=== PATIENT | male | born 1995 | race Caucasian/White ===

== ENCOUNTER 2021-01-28 20:40 | Emergency (ER) | payer BC, SELFPAY ==
--- NOTE | 2021-01-28 20:45 | XRR_ITS ---
PROCEDURE INFORMATION: Exam: XR Chest Exam date and time: 01/28/2021 8:45 PM Age: 25 years old Clinical indication: Pain; Shortness of breath and other: Anxious; Chest pressure and other: Radiating to left arm; Patient HX: Cp today radiating to left arm. PT been anxious for 2 days TECHNIQUE: Imaging protocol: XR of the chest. Views: 1 view. Total images: 1 COMPARISON: No relevant prior studies available. FINDINGS: Lungs: Hyperinflation and query a history of reactive airway disease/asthma/chronic bronchitis. Lungs Pleural spaces: Unremarkable. No pleural effusion. No pneumothorax. Heart/Mediastinum: Unremarkable. No cardiomegaly. Bones/joints: Unremarkable. XR/XR chest 1V portable [id number] IMPRESSION: Hyperinflation.
[2021-01-28 21:22] VITALS: BP 115/83; PULSE 73; RESP 14; TEMP 36.7; O2SAT 98
--- NOTE | 2021-01-28 21:38 | ED_ITS ---
HPI - Chest Pain General: Chief Complaint: Chest Pain Stated Complaint: chest pain Time Seen by Provider: 01/28/21 21:32 Source: patient Mode of arrival: ambulatory Limitations: no limitations History of Present Illness: HPI narrative: 25-year-old male states has been having chest pain along with some dyspnea over last 2 days. He states that he was at work and bent over and had a sharp pain in his chest. He states that pain is since improved and is now 1 out of 10. Denies any injuries. Denies any recent long trips. Denies any history of heart issues or any health issues. Associated symptoms: Reports dyspnea; Deny abdominal pain, fever(s), nausea or vomiting Review of Systems Const: Denies: fever(s), chills, body aches or change in appetite Eyes: Denies: blurry vision or eye discomfort ENMT: Denies: throat pain or dental pain Card: Reports: chest pain Resp: Reports: dyspnea GI: Denies: abdominal pain, nausea, vomiting or diarrhea : Denies: dysuria Musc: Denies: neck pain or back pain Skin/Breast: Denies: rash Neuro: Denies: headache(s) Psych: Denies: depression Sadiq/Lymph: Denies: easy bruising All/Imm: Denies: urticaria Physical Exam Const: COMMON NORMALS: no acute distress, patient oriented x3 and healthy appearing HENMT: COMMON NORMALS: normocephalic and atraumatic HEAD & SCALP: normocephalic and atraumatic Eye: COMMON NORMALS: Equal, round and reactive pupils present and EOMs intact bilaterally PUPIL: Yes Equal, round and reactive pupils present Neck/C-Spine: COMMON NORMALS: full ROM and supple Chest: COMMONS NORMALS: normal inspection of the chest and normal palpation of entire chest wall Resp: COMMON NORMALS: normal respiratory effort, No retractions, No use of accessory muscles and clear to auscultation bilaterally AUSCULTATION: clear to auscultation bilaterally Cardio: COMMON NORMALS: regular rate, regular rhythm and No murmurs present (Cardio) RATE: regular rate RHYTHM: regular rhythm GI: COMMON NORMALS: Normal to inspection, nondistended, normoactive bowel sounds present, Soft to palpation, non-tender and no masses PALPATION: Yes Soft to palpation Extremity: COMMON NORMALS: normal to inspection and full ROM Neuro: COMMON NORMALS: patient oriented x3, moves all extremities and no focal motor deficits Psych: COMMON NORMALS: mental status grossly normal, Normal thought process present and cooperative THOUGHT PROCESS: Normal thought process present Skin: COMMON NORMALS: no rashes or lesions noted and no wounds GENERAL SKIN EXAM: no rashes or lesions noted Course Vital Signs: Vital signs: Vital Signs Temperature 98.1 F 01/28/21 21:22 Pulse Rate 73 01/28/21 21:22 Respiratory Rate 14 01/28/21 21:22 Blood Pressure 115/83 01/28/21 21:22 Pulse Oximetry 98 01/28/21 21:22 MDM - Chest Pain MDM Narrative: Medical decision making narrative: Patient presents with chest pain is very atypical in nature. He is young healthy and his initial troponin and D-dimer are negative. He has no signs of pulmonary embolism or acute coronary syndrome. He is well-appearing here and is stable for discharge is to follow-up his PCP and return if worsening. Lab Data: Labs: Lab Results 01/28/21 01/28/21 01/28/21 Range/Units 21:47 21:47 21:47 WBC 7.3 (4.0-10.0) 10^3/ uL RBC 4.61 (4.1-5.3) 10^6/u L Hgb 14.8 (11.7-16.6) g/dL Hct 41.3 L (42.0-52.0) % MCV 89.6 (80-94) fL MCH 32.1 (28.0-34.0) pg MCHC 35.8 (30.0-36.0) g/dL RDW 11.2 L (12.1-15.1) % Plt Count 228 (130-400) 10^3/c mm MPV 9.5 (7.4-10.4) fL Neut % (Auto) 55.2 % Lymph % (Auto) 32.0 % Harper % (Auto) 9.8 % Eos % (Auto) 1.9 % Baso % (Auto) 0.8 % Neut # (Auto) 4.05 (1.8-7.7) 10^3/u L Lymph # (Auto) 2.4 (0.8-4.8) 10^3/u L Harper # (Auto) 0.7 (0.2-0.9) 10^3/u L Eos # (Auto) 0.1 (0.0-0.8) 10^3/u L Baso # (Auto) 0.1 (0.0-0.1) 10^3/u L Nucleated RBC % (a uto) 0 % Nucleated RBCs # 0.0 /100WBC D-Dimer <= 0.27 (0-0.59) ug/mIFE U Sodium 140 (136-145) mmol/L Potassium 3.5 (3.5-5.1) mmol/L Chloride 103 (98-107) mmol/L Carbon Dioxide 24 (22-29) mmol/L Anion Gap 16.5 (5-19) BUN 17 (6-20) mg/dL Creatinine 0.8 (0.7-1.2) mg/dL GFR Calculation 119.8 (90-130) mL/min Glucose 99 (65-115) mg/dL Calculated Osmolal ity 292 (285-295) mOsm/k g Calcium 8.8 (8.5-10.5) mg/dL Total Bilirubin 0.8 (0.15-1.2) mg/dL AST 21 (0-40) U/L ALT 14 (0-41) U/L Alkaline Phosphata se 69 (40-130) IU/L Troponin T Baselin e (0-15) ng/L Total Protein 7.0 (6.6-8.7) g/dL Albumin 5.0 (3.5-5.2) g/dL Globulin 2.0 (1.3-4.6) g/dL 01/28/21 Range/Units 21:47 WBC (4.0-10.0) 10^3/ uL RBC (4.1-5.3) 10^6/u L Hgb (11.7-16.6) g/dL Hct (42.0-52.0) % MCV (80-94) fL MCH (28.0-34.0) pg MCHC (30.0-36.0) g/dL RDW (12.1-15.1) % Plt Count (130-400) 10^3/c mm MPV (7.4-10.4) fL Neut % (Auto) % Lymph % (Auto) % Harper % (Auto) % Eos % (Auto) % Baso % (Auto) % Neut # (Auto) (1.8-7.7) 10^3/u L Lymph # (Auto) (0.8-4.8) 10^3/u L Harper # (Auto) (0.2-0.9) 10^3/u L Eos # (Auto) (0.0-0.8) 10^3/u L Baso # (Auto) (0.0-0.1) 10^3/u L Nucleated RBC % (a uto) % Nucleated RBCs # /100WBC D-Dimer (0-0.59) ug/mIFE U Sodium (136-145) mmol/L Potassium (3.5-5.1) mmol/L Chloride (98-107) mmol/L Carbon Dioxide (22-29) mmol/L Anion Gap (5-19) BUN (6-20) mg/dL Creatinine (0.7-1.2) mg/dL GFR Calculation (90-130) mL/min Glucose (65-115) mg/dL Calculated Osmolal ity (285-295) mOsm/k g Calcium (8.5-10.5) mg/dL Total Bilirubin (0.15-1.2) mg/dL AST (0-40) U/L ALT (0-41) U/L Alkaline Phosphata se (40-130) IU/L Troponin T Baselin e 6 (0-15) ng/L Total Protein (6.6-8.7) g/dL Albumin (3.5-5.2) g/dL Globulin (1.3-4.6) g/dL Imaging Data^: CXR: Radiologist's impression: [address] [address] XRay Report Signed Patient: Brennan Nolan Unit #: [id number] : 1995 Age/Sex: 25 / M ADM Date: 01/28/21 Loc: ER Room/Bed: Attending Dr: Ordering Provider/Ordering MD: Ronda Carrillo MD Date of Service: 01/28/21 Procedure(s): XR chest 1V portable [id number] Accession Number(s): [id number] Report Number: [id number] PROCEDURE INFORMATION: Exam: XR Chest Exam date and time: 01/28/2021 8:45 PM Age: 25 years old Clinical indication: Pain; Shortness of breath and other: Anxious; Chest pressure and other: Radiating to left arm; Patient HX: Cp today radiating to left arm. PT been anxious for 2 days TECHNIQUE: Imaging protocol: XR of the chest. Views: 1 view. Total images: 1 COMPARISON: No relevant prior studies available. FINDINGS: Lungs: Hyperinflation and query a history of reactive airway disease/asthma/chronic bronchitis. Lungs Pleural spaces: Unremarkable. No pleural effusion. No pneumothorax. Heart/Mediastinum: Unremarkable. No cardiomegaly. Bones/joints: Unremarkable. XR/XR chest 1V portable [id number] IMPRESSION: Hyperinflation. EKG Data^: EKG 1: Attestation: I personally reviewed and interpreted this EKG as follows: EKG interpretation date: 01/28/21 EKG interpretation time: 21:32 Interpretation: nsr hr [address] or t wave abnormalities qrs 99 qtc 386 Discharge Plan Discharge Patient Disposition: Home Clinical Impression: Chest pain Condition: Stable Prescriptions: New Naprosyn 500 mg tablet 500 mg PO BID PRN (Reason: pain) Qty: 20 RF: 0 Discharge Orders: Discharge ED (Routine); Ordered 01/28/21 Ordered By: Ronda Carrillo Discharge Diet: Advance as tolerated Discharge Activity: Resume usual activity Patient Instructions: Chest Pain (ED) Coding Level of Care Code ED 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
[2021-01-28 21:52] LABS: Basophils # 0.1 10^3/uL (0.0-0.1); Basophils % 0.8 %; Eosinophils # 0.1 10^3/uL (0.0-0.8); Eosinophils % 1.9 %; Hematocrit 41.3 % (42.0-52.0); Hemoglobin 14.8 g/dL (11.7-16.6); Lymphocytes # 2.4 10^3/uL (0.8-4.8); Mean Corpuscular HGB Conc 35.8 g/dL (30.0-36.0); Mean Corpuscular Hemoglobin 32.1 pg (28.0-34.0); Mean Corpuscular Volume 89.6 fL (80-94); Mean Platelet Volume 9.5 fL (7.4-10.4); Monocytes # 0.7 10^3/uL (0.2-0.9); Monocytes % 9.8 %; Neutrophils # 4.05 10^3/uL (1.8-7.7); Neutrophils % 55.2 %; Nucleated Red Blood Cells % 0 %; Platelet Count 228 10^3/cmm (130-400); Red Blood Count 4.61 10^6/uL (4.1-5.3); Red Cell Distribution Width 11.2 % (12.1-15.1); White Blood Count 7.3 10^3/uL (4.0-10.0)
[2021-01-28 22:21] LABS: Troponin(5th) Baseline 6 ng/L (0-15)
[2021-01-28 22:22] LABS: Alanine Aminotransferase 14 U/L (0-41); Alkaline Phosphatase 69 IU/L (40-130); Anion Gap 16.5 (5-19); Aspartate Amino Transferase 21 U/L (0-40); Blood Urea Nitrogen 17 mg/dL (6-20); Calcium 8.8 mg/dL (8.5-10.5); Carbon Dioxide 24 mmol/L (22-29); Chloride 103 mmol/L (98-107); Glomerular Filtration Rate 119.8 mL/min (90-130); Glucose 99 mg/dL (65-115); Osmolality Calculated 292 mOsm/kg (285-295); Potassium 3.5 mmol/L (3.5-5.1); Sodium 140 mmol/L (136-145); Total Bilirubin 0.8 mg/dL (0.15-1.2)
[2021-01-28 22:42] LABS: D Dimer <= 0.27 ug/mIFEU (0-0.59)
[2021-01-28 22:55] VITALS: PULSE 73; RESP 14; O2SAT 100
== END 2021-01-28 22:55 | disposition home or self-care (01) ==
PROVIDERS: Emergency Provider Emergency Medicine
DX: R07.9 Chest pain, unspecified (principal)
CPT/HCPCS: 71045; 80053; 84484; 85025; 85378; 99283